=== PATIENT | female | born 1950 | race Caucasian/White ===

== ENCOUNTER → 2021-05-14 09:36 | Outpatient (CLI) | payer MEDICARE, BC, SELFPAY ==
[2021-05-14 13:08] LABS: Hematocrit 37.6 % (37-47); Hemoglobin 11.2 g/dL (12.0-15.0); Mean Corp Hgb Conc 29.8 g/dL (32-36); Mean Corpuscular Hgb 24.7 pg (27.0-32.0); Mean Corpuscular Volume 82.8 fL (81-99); Mean Platelet Vol. 12.4 fl (6.2-12.0); Platelet Count 306 K/mm3 (150-450); RBC Distribution Width CV 16.3 % (11.6-14.6); RBC Distribution Width SD 49.1 fl (35.1-43.9); Red Blood Count 4.54 M/mm3 (4.2-5.4); White Blood Count 4.9 K/mm3 (4.4-11.0)
[2021-05-14 13:45] LABS: Vitamin B12 695 pg/mL (211-911)
[2021-05-14 13:59] LABS: ALB/GLOB Ratio 0.8 RATIO (0.9-2.4); AST(SGOT) 19 U/L (15-37); Alanine Aminotransfer ALT/SGPT 17 U/L (13-56); Albumin, Serum 3.4 g/dL (3.2-5.0); Alkaline Phosphatase 93 U/L (45-117); Anion Gap 7 (5-15); BUN 15 mg/dL (7-18); BUN/Creat Ratio 19.3 RATIO (10-20); Calcium,Total 8.8 mg/dL (8.5-10.1); Chloride 107 mmol/L (98-107); Cholesterol 208 mg/dL (200); Creatinine, Serum 0.78 mg/dL (0.55-1.02); EST Glomerular Filtration Rate 78 mL/min (>60); Est Glom Filt Rate - Afr Amer 94 mL/min (>60); Globulin 4.1 g/dL (2.2-4.2); Glucose 79 mg/dL (74-106); High Density Lipoprotein 53 mg/dL; Magnesium 2.5 mg/dL (1.6-2.6); Protein, Total 7.5 g/dL (6.4-8.2); Sodium Level 141 mmol/L (136-145); Thyroid Stim Hormone (TSH) 1.17 uIU/mL (0.358-3.74); Triglycerides 121 mg/dL; Very Low Density Lipoprotein 24 mg/dL (5-40)
== END ==
PROVIDERS: PCP Family Medicine; Referring Provider Family Medicine; Visit Provider Family Medicine
DX: Z00.00 Encounter for general adult medical examination without abnormal findings (principal)
CPT/HCPCS: 36415; 80053; 80061; 82607; 83735; 84443; 85027

== ENCOUNTER 2022-11-03 08:49 | Outpatient (CLI) | payer MEDICARE, BC, SELFPAY ==
[2022-11-03 10:25] LABS: Anion Gap 6 (5-15); BUN 15 mg/dL (7-18); BUN/Creat Ratio 17.4 RATIO (10-20); Chloride 104 mmol/L (98-107); Cholesterol 209 mg/dL (200); Creatinine, Serum 0.86 mg/dL (0.55-1.02); EST Glomerular Filtration Rate 69 mL/min (>60); Est Glom Filt Rate - Afr Amer 83 mL/min (>60); Glucose 93 mg/dL (74-106); High Density Lipoprotein 53 mg/dL; Potassium 3.9 mmol/L (3.5-5.1); Sodium Level 138 mmol/L (136-145); Triglycerides 96 mg/dL; Very Low Density Lipoprotein 19 mg/dL (5-40)
[2022-11-03 10:30] LABS: Vitamin D,25 Hydroxy 91.8 ng/mL
== END 2022-11-03 23:59 | disposition home or self-care (01) ==
LOC: MFPLAB 08:50
PROVIDERS: PCP Family Medicine; Referring Provider Family Medicine; Visit Provider Family Medicine
DX: Z00.00 Encounter for general adult medical examination without abnormal findings (principal)
CPT/HCPCS: 36415; 80048; 80061; 82306

== ENCOUNTER → 2022-11-29 | Outpatient (CLI) | payer MEDICARE, BC, SELFPAY ==
--- NOTE | 2022-11-29 14:25 | BI_ITS ---
MAMMOGRAPHY - BILATERAL SCREENING REASON FOR EXAM: Female, 72 years old. Routine annual screening examination. PERTINENT HISTORY: Non-contributory. Bilateral breast implants and prior breast aspirations. TECHNIQUE: Digital bilateral breast lj (3D mammographic acquisition) in the CC and MLO projections. 2-D mediolateral oblique (MLO) and craniocaudad (CC) views of both breasts were obtained. CAD: Full Field Digital Mammography with Computer Added Detection was performed. COMPARISON: No comparison mammograms available at this time. If any prior films become available, an addendum to this report can be generated. FINDINGS: Breast Composition: The breasts are heterogeneously dense, which may obscure small masses. There are no dominant masses or suspicious calcifications. Calcification is seen along the rim of both breast prostheses. No other significant abnormalities are identified. BI/SCRN MAMM (CAD)W/LJ BILAT IMPRESSION: Negative screening mammogram. Calcification of the anterior rim of both breasts prostheses. Yearly followup mammogram recommended. (A) ASSESSMENT CATEGORY: BIRADS Category 2: Benign. A letter regarding these results will be sent to the patient by the facility within 30 days. Approximately 10% of breast cancers are not detected by mammography. A normal mammogram should not delay biopsy of a clinically suspicious abnormality. [id number] Electronically Signed: Momo Beck MD at 9:18 EDT ,
--- NOTE | 2022-11-29 14:33 | BD_ITS ---
STUDY: DUAL ENERGY X-RAY ABSORPTIOMETRY / DXA REASON FOR EXAM: Female, 72 years old. N95.9 TECHNIQUE: Bone Mineral Density (BMD) measurements of lumbar spine and bilateral hips were obtained. COMPARISON: None. FINDINGS: Lumbar Spine (L1-L4): g/cm2 (0.867) / T-score (-1.6) / Z-score (0.6) Findings are suggestive of osteopenia with a moderate fracture risk. Left Femur Total: g/cm2 (0.700) / T-score (-2.0) / Z-score (-0.4) Left Femoral Neck: g/cm2 (0.593) / T-score (-2.3) / Z-score (-0.4) Right Femur Total: g/cm2 (0.703) / T-score (-2.0) / Z-score (-0.3) Right Femoral Neck: g/cm2 (0.611) / T-score (-2.1) / Z-score (-0.2) BD/Dexa Bone Density Study IMPRESSION: The patient is considered osteopenic as outlined below according to World Russ Organization (WHO) criteria with a high fracture risk. Reference Information: The T-score is the number of standard deviations above or below the standard which is normal for young adults at their peak bone mineral density. The World Health Organization (WHO) interprets the T-scores as follows: Above -1 Normal bone density Between -1 and -2.5 Osteopenia Equal to / or below -2.5 Osteoporosis As a practical clinical guideline, osteopenia may be graded as follows: Mild -1 through -1.5 Moderate -1.6 through -2.0 Severe -2.1 through -2.4 The Z-score is the number of standard deviations above or below age-matched controls. A Z-score of less than -1.5 would be considered abnormal. References: 1. NIH Osteoporosis and Related Bone Diseases www osteo.org 2. International Society for Clinical Densitometry www iscd.org 3. National Osteoporosis Foundation www nof.org Electronically Signed: Momo Beck MD at 14:49 EDT ,
== END | disposition home or self-care (01) ==
LOC: OPBD 14:24
PROVIDERS: PCP Family Medicine; Referring Provider Family Medicine; Visit Provider Family Medicine
DX: N95.9 Unspecified menopausal and perimenopausal disorder (principal); Z12.31 Encounter for screening mammogram for malignant neoplasm of breast
CPT/HCPCS: 77063; 77067; 77080

== ENCOUNTER 2022-12-08 10:00 | Outpatient (RCR) | payer MEDICARE, BC, SELFPAY ==
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
--- NOTE | 2022-12-08 10:59 | HP.PTDCSUM ---
It has been my pleasure to treat SEBASTIAN DANIEL referred by Dr. Camacho Longoria MD, with the diagnosis of SHOULDER AND NECK PAIN for a total of 9 visit(s). Discharge Date: Please see the following information for a summary of their discharge status. Subjective: DOING GOOD Bilateral Neck Pain Intensity (Out of 10): 0 % Improvement: 50 Objective/Function: POSTURE: mild forward posture. NEURO: denies paresthesia/tingling. CERVICAL: flexion min , lateral flexion / rotation min loss ,. extension min loss. PALPATION: tender levatoe Goal 1:: Patient to be I with HEP Goal 2:: Patient improve cervical ROM for function of recovery Goal 3:: Patient to improve neck oswestry score by 5 points to improve QOL Goal 4:: Patient to demonstrate 50% improvement with decrease pain and improved function. Plan: D/C If there are questions or concerns regarding this patient's physical therapy, please feel free to call me at [phone]. Thank you for the referral of this patient. Sincerely, Jamie Massey PT, Cert MDT, OCS Balance/Gait/Functional tests - Balance/Special Test Scores Oswestry Neck Score: 15
--- NOTE | 2022-12-08 14:39 | HP.PTDCSUM ---
It has been my pleasure to treat SEBASTIAN DANIEL referred by Dr. Camacho Longoria MD, with the diagnosis of SHOULDER AND NECK PAIN for a total of 9 visit(s). Discharge Date: Please see the following information for a summary of their discharge status. Subjective: DOING GOOD Bilateral Neck Pain Intensity (Out of 10): 0 Objective/Function: POSTURE: mild forward posture. NEURO: denies paresthesia/tingling. CERVICAL: flexion min , lateral flexion / rotation min loss ,. extension min loss. PALPATION: tender levatoe Goal 1:: Patient to be I with HEP Goal 2:: Patient improve cervical ROM for function of recovery Goal 3:: Patient to improve neck oswestry score by 5 points to improve QOL Goal 4:: Patient to demonstrate 50% improvement with decrease pain and improved function. Plan: D/C If there are questions or concerns regarding this patient's physical therapy, please feel free to call me at [phone]. Thank you for the referral of this patient. Sincerely, Jamie Massey, PT, Cert MDT, OCS Balance/Gait/Functional tests - Balance/Special Test Scores Oswestry Neck Score: 15
== END 2022-12-08 14:44 | disposition home or self-care (01) ==
LOC: PT 10:00
PROVIDERS: PCP Family Medicine; Referring Provider Family Medicine; Visit Provider Family Medicine
DX: M25.519 Pain in unspecified shoulder (principal); M54.2 Cervicalgia
CPT/HCPCS: 97110; 97140; 97162

== ENCOUNTER → 2024-11-14 | Outpatient (CLI) | payer MEDICARE, BC, SELFPAY ==
[2024-11-14 13:07] LABS: Anion Gap 12 (5-15); BUN 16 mg/dL (4-19); BUN/Creat Ratio 19.4 RATIO (10-20); Calcium,Total 9.4 mg/dL (7.6-11.0); Carbon Dioxide 24.2 mmol/L (21.0-32.0); Chloride 104 mmol/L (98-108); Cholesterol 229 mg/dL (<=200); Creatinine, Serum 0.84 mg/dL (0.70-1.20); EST Glomerular Filtration Rate 73 (>60); Glucose 88 mg/dL (70-99); High Density Lipoprotein 54 mg/dL; Low Density Lipoprotein Calc. 147 mg/dL; Potassium 3.9 mmol/L (3.3-5.1); Sodium Level 140 mmol/L (133-145); Triglycerides 142 mg/dL; Very Low Density Lipoprotein 28 mg/dL (5-40); cholesterol:hdl ratio screen 4.25
== END | disposition home or self-care (01) ==
LOC: MTLAB 09:37
PROVIDERS: PCP Family Medicine; Referring Provider Family Medicine; Visit Provider Family Medicine
DX: I10 Essential (primary) hypertension (principal)
CPT/HCPCS: 36415; 80048; 80061

== ENCOUNTER → 2025-07-25 | Outpatient (CLI) | payer MEDICARE, BC, SELFPAY ==
--- OUTSIDE RECORDS SUMMARY | 2025-07-25 09:27 | XMS RPT_ITS | CCD ---
Author Organization [facility] Care Team Providers Care Loading Manager Name Role Phone Cecily HOLLIS, Cyn Primary Care Provider Swati HOLLIS, Dr. Sauer Primary Care Provider Swati HOLLIS, Dr. Sauer Attending Provider Swati HOLLIS, Dr. Sauer Referring Provider [phone] Camacho Longoria Referring Unavailable Camacho Longoria Attending Unavailable Camacho Longoria Primary Care Unavailable Camacho Longoria Primary Care [facility], [place] Attending Unav ailable Allergies Allergy Classification Reported Allergen(s) Allergy Type Date of Onset Reaction(s) Facility (1 source) Codeine Drug Allergy 0 Vomiting [facility] Work Phone: (1 source) Hexachlorophene Drug Allergy 0 Other: See Comments [facility] Work Phone: Medications Completed/Discontinued Medications Medication Drug Class(es) Dates Sig (Normalized) Sig (Original) calcium carbonate 1000 mg / magnesium hydroxide 200 mg chewable tablet (1 source) Start: 08-15-2019 calcium carbonate-mag hydroxid 1,000-200 mg chew Take 1,000 mg by mouth once daily. 0 08/15/2019 Active Comment on above: Take 1,000 mg by narigs th once daily. calcium phosphate (1 source) CALCIUM PHOSPHAT E ORAL Take 1,000 mg by mouth. 0 Active Comment on above: Take 1,000 mg by nargis th. carbamide peroxide 65 mg/ml otic solution (1 source) Start: 08-15-2019 carbamide peroxide (DEBROX) 6.5 % otic solution Use 5 Drops in both ears twice daily. 1 Bottle 0 08/15/2019 Active Comment on above: Use 5 Drops in both ears twice daily. CPAP (1 source) Start: 09-25-2019 CPAP Indications: ESTEPHANIA (obstructive sleep apnea) Autopap 6-14 cm H2O, Heat Humidity, suitable mask, [employer] supplies, opt Chinstrap, G47.33. 1 Device 0 09/25/2019 Active Comment on above: Autopap 6-14 cm H2O, Heat Humidity, suitable mask, [employer] supplies, opt Chinstrap, G47.33. multivitamin tablet (1 source) Start: 08-15-2019 take 1 tablet by mouth once daily multivitamin tablet Take 1 tablet by mouth once daily. 0 08/15/2019 Active Comment on above: Take 1 tablet by nargis th once daily. nadolol 20 mg oral tablet (1 source) beta-Adrenergic Nhung Start: 03-16-2021 take 1 tablet by mouth once daily nadolol (CORGARD) 20 mg tablet Take 1 tablet by mouth once daily. 90 tablet 0 03/16/2021 Active Comment on above: Take 1 tablet by nargis th once daily. sodium phosphate 1500 mg oral tablet (1 source) Start: 01-10-2020 Sod Phos Wood-Sod Phos Dibasic (OSMOPREP) 1.5 gram tab Take according to package instructions 32 tablet 0 01/10/2020 Active Comment on above: Take according to pa ckage instructions SUMAtriptan 100 mg oral tablet (1 source) Serotonin-1b and Serotonin-1d Receptor Agonist Start: 08-15-2019 SUMAtriptan (IMITREX) 100 mg tablet Take 1 tablet by mouth as needed. 0 08/15/2019 Active Comment on above: Take 1 tablet by nargis th as needed. vitamin b12 2 mg extended release oral tablet (1 source) Vitamin B12 Start: 08-15-2019 take 1 tablet by mouth once daily Cyanocobalamin (VITAMIN B-12) 2,000 mcg TbER Take 1 tablet by mouth once daily. 0 08/15/2019 Active Comment on above: Take 1 tablet by nargis th once daily. zolpidem tartrate 6.25 mg extended release oral tablet (1 source) gamma-Aminobutyric Acid-ergic Agonist Start: 08-15-2019 take 1 tablet by mouth every twenty-four hours as needed zolpidem (AMBIEN CR) 6.25 mg CR tablet Take 1 tablet by mouth at bedtime as needed. 0 08/15/2019 Active Comment on above: Take 1 tablet by nargis th at bedtime as needed. Problems Problem Classification Problem Date Documented Da te Episodic/Chronic Essential hypertension (1 source) Essential (primary) hypertension; Translations: [Essential (primary) hypertension] Onset: 11-20-2024 Chronic Other screening for suspected conditions (not mental disorders or infectious disease) (1 source) Patient encounter status; Translations: [Encounter for screening mammogram for malignant neoplasm of breast] Episodic Results Test Name Value Interpretation Reference Range Facility Anion gap in Serum or Plasma Ordered By: Camacho Longoria on 11-14-2024 Anion gap [Moles/Vol] 12 mmol/L 12-19 [facility] BUN/creatinine ratioOrdered By: Camacho Longoria on 11-14-2024 Urea nitrogen/Creatinine [Mass ratio] 19.4 mg/mg 05-26 [facility] Basic Metabolic Profile (BMP )on 11-14-2024 BUN/CRE 19.4 RATIO Normal 05-26 [facility] Comment on above: Performed By: #### L 500.4100, L500.2500 #### [facility] [address] [place], [address] Calcium [Mass/Vol] 9.4 mg/dL Normal 7.6-11.0 [facility] Comment on above: Performed By: #### L 500.4100, L500.2500 #### [facility] [address] [place], [address] Chloride [Moles/Vol] 104 mmol/L Normal 98-108 [facility] Comment on above: Performed By: #### L 500.4100, L500.2500 #### [facility] [address] [place], [address] CO2 [Moles/Vol] 24.2 mmol/L Normal 21.0-32.0 [facility] Comment on above: Performed By: #### L 500.4100, L500.2500 #### [facility] [address] [place], [address] Creatinine [Mass/Vol] 0.84 mg/dL Normal 0.70-1.20 [facility] Comment on above: Performed By: #### L 500.4100, L500.2500 #### [facility] [address] [place], [address] GAP 12 Normal 5-15 [facility] Comment on above: Performed By: #### L 500.4100, L500.2500 #### [facility] [address] [place], [address] GFR/1.73 sq M.predicted among non-blacks MDRD (S/P/Bld) [Vol rate/Area] 73 mL/min/{1.73_m2} Normal >60 [facility] Comment on above: Result Comment: mL/m in/1.73m2 CKD-EPI Creatinine Equation (2020) Performed By: #### L 500.4100, L500.2500 #### [facility] [address] [place], [address] Glucose [Mass/Vol] 88 mg/dL Normal 70-99 [facility] Comment on above: Performed By: #### L 500.4100, L500.2500 #### [facility] [address] [place], [address] Potassium [Moles/Vol] 3.9 mmol/L Normal 3.3-5.1 [facility] Comment on above: Performed By: #### L 500.4100, L500.2500 #### [facility] [address] [place], [address] Sodium [Moles/Vol] 140 mmol/L Normal 133-145 [facility] Comment on above: Performed By: #### L 500.4100, L500.2500 #### [facility] [address] [place], [address] Urea nitrogen [Mass/Vol] 16 mg/dL Normal 4-19 [facility] Comment on above: Performed By: #### L 500.4100, L500.2500 #### [place] [facility] [address] [place], [place], [address] Calculated very low density lipoprotein (VLDL) cholesterol measurementOrdered By: Camacho Longoria on 11-14-2024 VLDL Cholesterol 28 mg/dL 5-40 [facility] Carbon dioxide, total [Moles /volume] in Central venous bloodOrdered By: Camacho Longoria on 11-14-2024 CO2 [Moles/Vol] 24.2 mmol/L 21.0-32.0 [facility] Chloride assayOrdered By: Bahman Longoria on 11-14-2024 Chloride [Moles/Vol] 104 mmol/L 98-108 [facility] GFR/1.73 sq M.predicted jose antonio g non-blacks MDRD (S/P/Bld) [Vol rate/Area]Ordered By: Camacho Longoria on 11-14-2024 Estimated GFR (MDRD) Non-Af Amer 73 >60 [facility] Comment on above: mL/min/1.73m2 CKD-EP I Creatinine Equation (2020) LDL calc ser/plasOrdered By: Camacho Longoria on 11-14-2024 LDL Cholesterol, Calculated 147 mg/dL [facility] Comment on above: Pyckljtejs=707-732 m g/dL & Higher Gdxl=953 mg/dL or greater Lipid Profileon 11-14-2024 CHOL:HDL 4.25 Normal [facility] Comment on above: Performed By: #### L 500.4100, L500.2500 #### [facility] [address] [place], [place], [address] Cholesterol [Mass/Vol] 229 mg/dL High <=200 [facility] Comment on above: Result Comment: Chol esterol level, Desirable <200 mg/dL Borderline high cholesterol 200-239 mg/dL High cholesterol >=240 mg/dL Recommendations of the NCEP Adult Treatment Panel for the following risk-cutoff thresholds for the [place] population. Performed By: #### L 500.4100, L500.2500 #### [facility] [address] [place], [place], [address] Cholesterol in HDL [Mass/Vol] 54 mg/dL Normal [facility] Comment on above: Result Comment: Rosalba onal Cholesterol Education Program (NCEP) guidelines: <40 mg/dL: Low HDL-cholesterol (major risk factor for CHD) >= 60 mg/dL: High HDL-cholesterol (negative risk factor for CHD) HDL-cholesterol is affected by a number of factors, e.g. smoking, exercise, hormones, sex and age. Performed By: #### L 500.4100, L500.2500 #### [facility] [address] [place], [address] Cholesterol in LDL [Mass/Vol] 147 mg/dL Normal [facility] Comment on above: Result Comment: Bord oxqnrf=930-673 mg/dL Higher Avgs=163 mg/dL or greater Performed By: #### L 500.4100, L500.2500 #### [facility] [address] [place], [address] Cholesterol in VLDL [Mass/Vol] 28 mg/dL Normal 5-40 [facility] Comment on above: Performed By: #### L 500.4100, L500.2500 #### [facility] [address] [place], [address] Triglyceride [Mass/Vol] 142 mg/dL Normal [facility] Comment on above: Result Comment: The drugs N-Acetylcysteine and Metamizole may falsely depress this assay. Normal range: <150 mg/dL Borderline High: 150-199 mg/dL High: 200-499 mg/dL Very High: >500 mg/dL Performed By: #### L 500.4100, L500.2500 #### [facility] [address] [place], [address] Potassium (Unsp spec) [Mass/ Vol]Ordered By: Camacho Longoria on 11-14-2024 Potassium [Moles/Vol] 3.9 mmol/L 3.3-5.1 [facility] Screening total cholesterol/ high density lipoprotein (HDL) cholesterol ratioOrdered By: Camacho Longoria on 11-14-2024 Cholesterol.total/Ashley sterol in HDL [Mass ratio] 4.25 {ratio} [facility] Serum creatinine measurement (mass/volume)Ordered By: Camacho Longoria on 11-14-2024 Creatinine [Mass/Vol] 0.84 mg/dL 0.70-1.20 [facility] Serum glucose measurement (m ass/volume)Ordered By: Camacho Longoria on 11-14-2024 Glucose [Mass/Vol] 88 mg/dL 70-99 [facility] Serum or plasma calcium hanna urement (mass/volume)Ordered By: Camacho Longoria on 11-14-2024 Calcium [Mass/Vol] 9.4 mg/dL 7.6-11.0 [facility] Serum or plasma cholesterol in HDL measurement (mass/volume)Ordered By: Camacho Longoria on 11-14-2024 Cholesterol in HDL [Mass/Vol] 54 mg/dL >40 [facility] Comment on above: National Cholesterol Education Program (NCEP) guidelines:<40 mg/dL: Low HDL-cholesterol (major risk factor for CHD)>= 60 mg/dL: High HDL-cholesterol (negative risk factor for CHD)HDL-cholesterol is affected by a number of factors, e.g. smoking, exercise, hormones, sex and age. Serum or plasma cholesterol measurement (mass/volume)Ordered By: Camacho Longoria on 11-14-2024 Cholesterol [Mass/Vol] 229 mg/dL High <201 [facility] Comment on above: Cholesterol level, D esirable <200 mg/dLBorderline high cholesterol 200-239 mg/dLHigh cholesterol >=240 mg/dLRecommendations of the NCEP Adult Treatment Panel for the following risk-cutoff thresholds for the [place] population. Serum or plasma urea nitroge n measurement (mass/volume)Ordered By: Camacho Longoria on 11-14-2024 Urea nitrogen [Mass/Vol] 16 mg/dL 4-19 [facility] Sodium levelOrdered By: Camacho Longoria on 11-14-2024 Sodium [Moles/Vol] 140 mmol/L 133-145 [facility] Triglycerides measurementOrd ered By: Camacho Longoria on 11-14-2024 Triglyceride [Mass/Vol] 142 mg/dL <199 [facility] Comment on above: The drugs N-Acetylcy steine and Metamizole may falsely depress this assay. Normal range: <150 mg/dLBorderline High: 150-199 mg/dLHigh: 200-499 mg/dLVery High: >500 mg/dL Basophil percentageOrdered B y: Dr. Longoria on 11-03-2022 Chloride [Moles/Vol] 104 mmol/L 98-107 [facility] Cholesterol [Mass/Vol] 209 mg/dL <200 [facility] Comment on above: <200 mg/dL Desirable 200-240 mg/dL Borderline >240 mg/dL High Risk Glucose [Mass/Vol] 93 mg/dL 74-106 [facility] Potassium [Moles/Vol] 3.9 mmol/L 3.5-5.1 [facility] Sodium [Moles/Vol] 138 mmol/L 136-145 [facility] Triglyceride [Mass/Vol] 96 mg/dL <199 [facility] Comment on above: The drugs N-Acetylcy steine and Metamizole may falsely depress this assay.Serum Triglycerides Reference Interval Normal <150 mg/dL Borderline high 150 - 199 mg/dL High 200 - 499 mg/dL Very High > or = 500 mg/dL Laboratory - Chemistry and C hemistry - challengeOrdered By: Dr. Longoria on 11-03-2022 CO2 [Moles/Vol] 28.0 mmol/L 21.0-32.0 [facility] Urea nitrogen/Creatinine [Mass ratio] 17.4 mg/mg 10-20 [facility] No Panel InformationOrdered By: Dr. Longoria on 11-03-2022 Estimated GFR (MDRD) Amer 83 mL/min >60 [facility] Comment on above: GFR Calc Estimated GFR (MDRD) Non-Af Amer 69 mL/min >60 [facility] Comment on above: Non- GFR Calc Vitamin D 25-Hydroxy 91.8 ng/mL [facility] Comment on above: Vitamin D 25(OH) Sta tus Range Deficiency <20 ng/mL (50nmol/L) Insufficiency 20 - 30 ng/mL (50 - 75 nmol/L) Sufficiency 30 - 100 ng/mL (75 - 250 nmol/L) Toxicity >100 ng/mL (>250 nmol/L) Serum or plasma calcium hanna urement (mass/volume)Ordered By: Dr. Longoria on 11-03-2022 Calcium [Mass/Vol] 9.0 mg/dL 8.5-10.1 [facility] Serum or plasma cholesterol in HDL measurement (mass/volume)Ordered By: Dr. Longoria on 11-03-2022 Cholesterol in HDL [Mass/Vol] 53 mg/dL >40 [facility] Comment on above: The drugs N-Acetylcy steine and Metamizole may falsely depress this assay. Reference Range HDL <40 mg/dL Low HDL Cholesterol HDL >or= 60 mg/dL High HDL Cholesterol Serum or plasma cholesterol in VLDL measurement (mass/volume)Ordered By: Dr. Longoria on 11-03-2022 Cholesterol in VLDL [Mass/Vol] 19 mg/dL 5-40 [facility] Serum or plasma creatinine m easurement (mass/volume)Ordered By: Dr. Longoria on 11-03-2022 Creatinine [Mass/Vol] 0.86 mg/dL 0.55-1.02 [facility] Comment on above: The validity of the calculated GFR & GFRAA in patients over 70 years has not been determined. Clinical correlation is essential. Serum or plasma low density lipoprotein (LDL) cholesterol measurement (mass/volume)Ordered By: Dr. Longoria on 11-03-2022 Cholesterol in LDL [Mass/Vol] 137 mg/dL 0-130 [facility] Serum or plasma urea nitroge n measurement (mass/volume)Ordered By: Dr. Longoria on 11-03-2022 Urea nitrogen [Mass/Vol] 15 mg/dL 7-18 [facility] Thin prep Papanicolaou smear with manual screeningOrdered By: Dr. 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 Reviewed chart and last rx was written on 12-05-2019 for 1 year. Per rx pt has been out since apt 12-04-2020. information technology director verbalized understanding and will call pt and have her call PCP. Also reviewed refill on 03-15-2021 and provider states pt needs to make apt since last visit was 10-14-2019 and no apt is scheduled Tanner Hodgson RN 03/22/2021 11:37 AM Signed information technology director from [employer] called, verified pt by name and birthdate. Tech wanted to follow up regarding rx request. Reviewed below note with tech. Tech verbalized understanding and will contact pt Tanner Hodgson RN Allergies As of Date: 03/18/2021 Noted Allergy Reaction CODEINE 08/15/2019 11 - Vomiting PHISOHEX (HEXACHLOROPHENE) 08/15/2019 14 - Other: See Comments Comments: severe blisters Date Reviewed: 02/18/2020 Reviewed by: Anaid (Rn) DEREK Roger - Fully Assessed Reason for Visit: Refill Request [94] Refill Request [94] Prescriptions as of 03/22/2021 - nadolol (CORGARD) 20 mg tablet Take 1 tablet by mouth once daily. - Sod Phos Wood-Sod Phos Dibasic (OSMOPREP) 1.5 gram tab Take according to package instructions - buPROPion XL (WELLBUTRIN XL) 300 mg 24 hr tablet Take 1 tablet by mouth once daily. must be PAR PHARMA - CALCIUM PHOSPHATE ORAL Take 1,000 mg by mouth. - CPAP Autopap 6-14 cm H2O, Heat Humidity, suitable mask, [employer] supplies, opt Chinstrap, G47.33. - multivitamin tablet Take 1 tablet by mouth once daily. - calcium carbonate-mag hydroxid 1,000-200 mg chew Take 1,000 mg by mouth once daily. - Cyanocobalamin (VITAMIN B-12) 2,000 mcg TbER Take 1 tablet by mouth once daily. - SUMAtriptan (IMITREX) 100 mg tablet Take 1 tablet by mouth as needed. - zolpidem (AMBIEN CR) 6.25 mg CR tablet Take 1 tablet by mouth at bedtime as needed. - carbamide peroxide (DEBROX) 6.5 % otic solution Use 5 Drops in both ears twice daily. Problem List As Of Date: 03/18/2021 (None) Encounter Status:Closed by TANNER HODGSON RN on 03/18/[address] [facility] Encounters Encounter Date Encounter Type Care Provider Facility Start: 02-07-2025 ambulatory Camacho Longoria Facility:[facility] Start: 11-14-2024 End: 11-14-[address] Camacho Longoria MD Work Phone: [facility] Work Phone: Start: 11-14-2024 End: 11-14-[address] Camacho Longoria MD -Laboratory, [place] Work Phone: Start: 11-14-2024 End: 11-14-2024 ambulatory Camacho Longoria Facility:[facility] Start: 12-01-2022 Registered [facility]Physical Therapy Start: 11-29-2022 End: 11-29-2022 ambulatory [facility] Work Phone: Start: 11-29-2022 End: 11-29-2022 Patient encounter procedure [facility]-Outpatient Bone Densitometry Start: 11-03-2022 End: 11-03-2022 Patient encounter procedure [facility] Start: 02-09-2022 ambulatory Cyn Calvert Work Phone: Internal Medicine [facility] Procedures Date Procedure Procedure Detail Performing Clinician Start: 11-29-2022 Dual energy X-ray absorptiometry Start: 11-29-2022 Screening mammography Start: 02-18-2020 Colonoscopy Cyn lowery MD Work Phone: Start: 09-25-2019 Adult depression scr eening assessment Cyn Leonardo MD Work Phone: Plan of Treatment Date Care Activity Detail Author Start: 02-17-2025 Colonoscopy COLONOSCOPY [facility] Start: 02-17-2025 COLORECTAL CANCER SCREENING COLORECTAL CANCER SCREENING [facility] Start: 09-25-2024 LIPID SCREEN LIPID SCREEN [facility] Start: 06-07-2023 Urine microalbumin profile DTAP,TDAP,TD (2 - Td or Tdap) [facility] Start: 09-25-2022 DIABETES SCREEN DIABETES SCREEN [facility] Start: 04-07-2022 Influenza vaccination INFLUENZA (#1) [facility] Start: 08-07-2021 ADVANCE DIRECTIVE DISCUSSION ADVANCE DIRECTIVE DISCUSSION [facility] Start: 09-25-2020 Adult depression screening assessment DEPRESSION SCREENING [facility] Start: 2015 BONE DENSITY BONE DENSITY [facility] Start: 2013 SHINGRIX VACCINE (2 of 3) SHINGRIX VACCINE (2 of 3) [facility] Start: 1995 COLOGUARD (FIT-DNA) COLOGUARD (FIT-D NA) [facility] Start: [address] COLONOGRAPHY [facility] Start: 1995 FECAL OCCULT BLOOD FECAL OCCULT BLOO D [facility] Start: 1995 SIGMOIDOSCOPY SIGMOIDOSCOPY [facility] Start: 1990 Mammography MAMMOGRAM [facility] Start: 1968 HEPATITIS C SCREENING HEPATITIS C SC REENING [facility] Start: 02-13-1951 COVID-19 VACCINE (#1) COVID-19 VACCI NE (#1) [facility] End: 03-11-2023 Screening mammography bi 2-view breast inc cad MANUEL SCREENING Radiology Routine Encounter for screening mammogram for breast cancer 1 Occurrences starting 02/09/2022 until 03/11/2023 [facility] Work Phone: Comment on above: 1 Occurrences starti ng 02/09/2022 until 03/11/2023 Immunizations Immunization Date Immunization Notes Care Provider Fa cility 09-12-2018 pneumococcal polysaccharide vaccine, 23 valent Cyn Leonardo MD Work Phone: [facility] Work Phone: 06-26-2017 influenza, high dose seasonal, preservative-free Cyn Leonardo MD Work Phone: [facility] Work Phone: 06-26-2017 pneumococcal conjuga te vaccine, 13 valent Cyn Leonardo MD Work Phone: [facility] Work Phone: 05-03-2016 influenza, high dose seasonal, preservative-free Cyn Leonardo MD Work Phone: [facility] Work Phone: 06-23-2014 influenza, seasonal, injectable Cyn Leonardo MD Work Phone: [facility] Work Phone: 06-21-2013 zoster vaccine, live Cyn Leonardo MD Work Phone: [facility] Work Phone: 06-07-2013 tetanus toxoid, redu shae diphtheria toxoid, and acellular pertussis vaccine, adsorbed Cyn Leonardo MD Work Phone: [facility] Work Phone: 05-17-2013 influenza, seasonal, injectable Cyn Leonardo MD Work Phone: [facility] Work Phone: 07-17-2012 influenza, seasonal, injectable Cyn Leonardo MD Work Phone: [facility] Work Phone: 07-19-2011 influenza, seasonal, injectable Cyn Leonardo MD Work Phone: [facility] Work Phone: 04-26-2010 influenza, seasonal, injectable Cyn Leonardo MD Work Phone: [facility] Work Phone: Payers Date Payer Category Payer Medicare [id number] 2024 Self-pay [id number] 2024 Unknown [id number] 2018 Unknown [employer] BLUE CARD PPO OOS [id number] 2018-Present [phone] [address] [place] [address] PPO [id number] 2015 Medicare MEDICARE MEDICAR E A AND B [id number] 2015-Present [phone] [address] [address] [place] [address] Medicare [id number] Unknown [id number] Unknown [id number] Social History Date Type Detail Facility [facility]: [facility] Work Phone: Start: 08-15-2019 Tobacco use and exposure Smoke less tobacco non-user [facility] Work Phone: Start: 02-18-2020 Alcohol intake Current drinke r of alcohol (finding) [facility] Start: 10-12-2019 End: 02-18-2020 History SDOH Alcohol Frequency 2 [facility] Start: 02-18-2020 History SDOH Alcohol Std Drinks 98 [facility] Start: 10-12-2019 End: 02-18-2020 History SDOH Alcohol Binge 1 [facility] Start: 08-15-2019 History SDOH Alcohol Comment one glass of wine once a month [facility] Start: 10-12-2019 History SDOH Social Connections Phone 5 [facility] Start: 10-12-2019 History SDOH Social Connections Meetings 3 [facility] Start: 10-12-2019 History SDOH Physica l Activity MPS 4 [facility] Start: 10-11-2019 Education 18 [facility] Start: 1950 Sex Assigned At Not on file [facility] Start: 1950 Sex Assigned At Female [facility] Work Phone: Start: 04-16-2025 Sex Female (finding) [facility] Clinical Note 02-09-2022 Note Date & Type Note Facility 02-09-2022 Note Patient Outreach (IN [facility]) FREDYSEBASTIAN A ([id number]) 1950 F Date Time Provider Department 02/09/22 CYN LEONARDO During your visit today, we recorded the following information about you: Allergies As of Date: 02/09/2022 Noted Allergy Reaction CODEINE 08/15/2019 11 - Vomiting PHISOHEX (HEXACHLOROPHENE) 08/15/2019 14 - Other: See Comments Comments: severe blisters Date Reviewed: 02/18/2020 Reviewed by: Anaid (Rn) DEREK Roger - Fully Assessed Visit Diagnosis:Encounter for screening mammogram for breast cancer [Z12.31] Order(s):[facility] SCREENING [[id number]] Order #: [id number] FUTURE Prescriptions as of 02/14/2022 - nadolol (CORGARD) 20 mg tablet Take 1 tablet by mouth once daily. - Sod Phos Wood-Sod Phos Dibasic (OSMOPREP) 1.5 gram tab Take according to package instructions - buPROPion XL (WELLBUTRIN XL) 300 mg 24 hr tablet Take 1 tablet by mouth once daily. must be PAR PHARMA - CALCIUM PHOSPHATE ORAL Take 1,000 mg by mouth. - CPAP Autopap 6-14 cm H2O, Heat Humidity, suitable mask, Lifetime supplies, opt Chinstrap, G47.33. - multivitamin tablet Take 1 tablet by mouth once daily. - calcium carbonate-mag hydroxid 1,000-200 mg chew Take 1,000 mg by mouth once daily. - Cyanocobalamin (VITAMIN B-12) 2,000 mcg TbER Take 1 tablet by mouth once daily. - SUMAtriptan (IMITREX) 100 mg tablet Take 1 tablet by mouth as needed. - zolpidem (AMBIEN CR) 6.25 mg CR tablet Take 1 tablet by mouth at bedtime as needed. - carbamide peroxide (DEBROX) 6.5 % otic solution Use 5 Drops in both ears twice daily. Problem List As Of Date: 02/09/2022 (None) Encounter Status:Closed by ELEANOR CUADRA on 02/14/[address] [facility] Clinical Note 02-26-2021 Note Date & Type Note Facility 02-26-2021 Note Patient Outreach (IN [facility]) SEBASTIAN DANIEL ([id number]) 1950 F Date Time Provider Department 02/26/21 CYN LEONARDO During your visit today, we recorded the following information about you: Allergies As of Date: 02/26/2021 Noted Allergy Reaction CODEINE 08/15/2019 11 - Vomiting PHISOHEX (HEXACHLOROPHENE) 08/15/2019 14 - Other: See Comments Comments: severe blisters Date Reviewed: 02/18/2020 Reviewed by: Anaid (Derek) DEREK Roger - Fully Assessed Visit Diagnosis:Encounter for screening mammogram for breast cancer [Z12.31] Order(s):[facility] SCREENING [[id number]] Order #: [id number] FUTURE Prescriptions as of 03/01/2021 - nadolol (CORGARD) 20 mg tablet Take 1 tablet by mouth once daily. - Sod Phos Wood-Sod Phos Dibasic (OSMOPREP) 1.5 gram tab Take according to package instructions - buPROPion XL (WELLBUTRIN XL) 300 mg 24 hr tablet Take 1 tablet by mouth once daily. must be PAR PHARMA - CALCIUM PHOSPHATE ORAL Take 1,000 mg by mouth. - CPAP Autopap 6-14 cm H2O, Heat Humidity, suitable mask, Lifetime supplies, opt Chinstrap, G47.33. - multivitamin tablet Take 1 tablet by mouth once daily. - calcium carbonate-mag hydroxid 1,000-200 mg chew Take 1,000 mg by mouth once daily. - Cyanocobalamin (VITAMIN B-12) 2,000 mcg TbER Take 1 tablet by mouth once daily. - SUMAtriptan (IMITREX) 100 mg tablet Take 1 tablet by mouth as needed. - zolpidem (AMBIEN CR) 6.25 mg CR tablet Take 1 tablet by mouth at bedtime as needed. - carbamide peroxide (DEBROX) 6.5 % otic solution Use 5 Drops in both ears twice daily. Problem List As Of Date: 02/26/2021 (None) Encounter Status:Closed by [employer], PRODUSER on 03/01/[address] [facility] Evaluation note Note Date & Type Note Facility Evaluation note Diagnosis Encounter for screening mammogram for breast cancer documented in this encounter [facility] Evaluation note Note Date & Type Note Facility Evaluation note No assessment information availa ble [facility] Work Phone: Reason for referral (narrative) Diagnostic Procedure Only (Routine) - Pending Review Note Date & Type Note Facility Reason for referral (narrati ve) Specialty Diagnoses / Procedures Referred By Bryon martinez Referred To Contact [facility] Diagnoses Encounter for screening mammogram for breast cancer Procedures MANUEL SCREENING SCREENING MAMMOGRAPHY BI 2-VIEW BREAST INC Cyn Resendiz MD [address] [place] [address] [facility] [address] [place] [address] Referral ID Status Reason Start Date Expiration Date Visits Requested Visits Authorized [id number] Pending Review Auto-Generat ed Referral 02/09/2022 03/11/2023 1 1 [facility] Reason for referral (narrative) Note Date & Type Note Facility Reason for referral (narrative) No reason for referral information available [facility] Work Phone: Summary Purpose Family History No Family History Records FoundNo Family History Records Found Advance Directives No Advanced Directives Records FoundDocuments on File Type Date 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 RX HERE Additional Source Comments INFORMATION SOURCE (unrecogn ized section and content) DATE CREATED AUTHOR 02/14/[address] [facility] DATE CREATED AUTHOR AUTHOR'S ORGANIZ ATION 02/09/2025 [facility] Source Comments (unrecognize d section and content) In the event this informatio n is protected by the Federal Confidentiality of Alcohol and Drug Abuse Patient Records regulations: The Federal rules restrict any use of the information to criminally investigate or prosecute any alcohol or drug abuse patient.[facility] Care Teams (unrecognized sec tion and content) Team Status: Active Member Role Status Dates Dr. Camacho Longoria MD Primary Care Provider Active Team Status: Inactive Member Role Status Dates Dr. Camacho Longoria MD Primary Care Provider Active Start: November 14, 2024 End: November 14, 2024 Dr. Camacho Longoria MD Attending Provider Active Start: November 14, 2024 End: November 14, 2024 Dr. Camacho Longoria MD Referring Provider Active Start: November 14, 2024 End: November 14, 2024 Loading Manager Relationship Specialty Start Date End Date Cyn Leonardo MD [address] [place] [address] PCP - General Internal Medicine 08/15/19 Team Status: Active Member Role Status Dates Dr. Camacho Longoria MD Primary Care Provi monique, Attending Provider, Referring Provider Active STEFANY SAUER Active Team Status: Inactive Member Role Status Dates Dr. Camacho Longoria MD Primary Care Provi monique, Attending Provider, Referring Provider Active Goals (unrecognized section and content) Goals may be documented in a n alternate sectionGoals may be documented in an alternate section FOR RECORDS PERTAINING TO PATIENTS WHO ARE OR HAVE BEEN ENROLLED IN A CHEMICAL DEPENDENCY/SUBSTANCEABUSE PROGRAM, SOME INFORMATION MAY BE OMITTED. This clinical summary was aggregated from multiple sources. Caution should be exercised in using it in the provision of clinical care. This summary normalizes information from multiple sources, and as a consequence, information in this document may materially change the coding, format and clinical context of patient data. In addition, data may be omitted in some cases. CLINICAL DECISIONS SHOULD BE BASED ON THE PRIMARY CLINICAL RECORDS. [facility] [employer] [facility]. provides no warranty or guarantee of the accuracy or completeness of information in this document.
[2025-07-25 11:19] LABS: AST(SGOT) 21 U/L (<=31); Alanine Aminotransfer ALT/SGPT 13 U/L (<=34); Albumin, Serum 4.2 g/dL (3.4-4.8); Alkaline Phosphatase 86 U/L (35-104); Anion Gap 12 (5-15); BUN 11 mg/dL (4-19); BUN/Creat Ratio 12.6 RATIO (10-20); Calcium,Total 9.4 mg/dL (7.6-11.0); Carbon Dioxide 23.8 mmol/L (21.0-32.0); Chloride 103 mmol/L (98-108); Cholesterol 212 mg/dL (<=200); Globulin 2.9 g/dL (2.2-4.2); Glucose 137 mg/dL (70-99); Low Density Lipoprotein Calc. 140 mg/dL; Potassium 4.1 mmol/L (3.3-5.1); Triglycerides 123 mg/dL; Very Low Density Lipoprotein 25 mg/dL (5-40); cholesterol:hdl ratio screen 4.27
== END | disposition home or self-care (01) ==
LOC: MFPLAB 09:02
PROVIDERS: PCP Family Medicine; Visit Provider Family Medicine
DX: E78.5 Hyperlipidemia, unspecified (principal)
CPT/HCPCS: 36415; 80053; 80061